=== PATIENT | male | born 1985 | race Two or more races ===

== ENCOUNTER 2023-07-20 11:24 | Inpatient (IN) | payer OTHER ==
[~2023-07-20] VITALS: Ht 177.8 cm; Wt 95.3 kg
[2023-07-20] MEDS ORDERED: ACETAMINOPHEN ES 500 MG TABLET ONE ×3 (12:25→13:29)
[2023-07-20] MEDS ORDERED: IV NS 0.9% 1,000 ML BAG IV ONE (12:30)
[2023-07-20] MEDS: ACETAMINOPHEN ES 500 MG TABLET PO ONE ×2 (12:30→12:39)
[2023-07-20 12:48] LABS: BASOPHILS % (AUTO) 0.3 % (0.0-2.0); EOSINOPHILS # (AUTO) 0.1 K/uL (0.0-0.7); EOSINOPHILS % (AUTO) 1.2 % (0.0-6.0); HEMATOCRIT 48 % (39-51); HEMOGLOBIN 15.8 g/dL (13.5-17.5); LYMPHOCYTES # (AUTO) 1.7 K/uL (0.8-4.8); LYMPHOCYTES % (AUTO) 15.2 % (20.0-44.0); MEAN CORPUSCULAR HEMOGLOBIN 30 PG (26.0-33.0); MEAN CORPUSCULAR HGB CONC 33 g/dl (31.0-36.0); MEAN CORPUSCULAR VOLUME 91 fL (80-96); MONOCYTES # (AUTO) 0.9 K/uL (0.1-1.30); MONOCYTES % (AUTO) 8.4 % (2.0-12.0); NEUTROPHILS # (AUTO) 8.4 K/uL (1.8-8.9); NEUTROPHILS % (AUTO) 74.9 % (43.0-81.0); PLATELET COUNT (AUTO) 177 K/uL (150-450); RED BLOOD CELL COUNT(AUTO) 5.24 MIL/uL (4.5-6.0); RED CELL DISTRIBUTION WIDTH 14.3 % (11.5-15.0); WHITE BLOOD COUNT (AUTO) 11.2 K/uL (4.3-11.0)
[2023-07-20 13:02] LABS: ALANINE AMINOTRANSFERASE 52 U/L (12-78); ALBUMIN 4.1 g/dL (3.4-5.0); ALKALINE PHOSPHATASE 76 U/L (46-116); ASPARTATE AMINOTRANSFERASE 27 U/L (15-37); BILIRUBIN,DIRECT 0.2 mg/dL (0.0-0.2); BILIRUBIN,TOTAL 0.8 mg/dL (0.2-1.0); CALCIUM, SERUM 8.8 mg/dL (8.5-10.1); CARBON DIOXIDE 29 mmol/L (21-32); CHLORIDE 103 mmol/L (98-107); GLUCOSE 90 mg/dL (74-106); POTASSIUM 4.6 mmol/L (3.5-5.1); SODIUM SERUM 136 mmol/L (136-145); TOTAL PROTEIN, SERUM 7.7 g/dL (6.4-8.2); UREA NITROGEN, BLOOD 11 mg/dL (7-18)
[2023-07-20 13:05] LABS: ALCOHOL, BLOOD < 3 mg/dL (0-10)
[2023-07-20] MEDS ORDERED: WARF4TAB72 PO (13:17)
[2023-07-20] MEDS ORDERED: OMEP20CA15 PO (13:17)
[2023-07-20] MEDS ORDERED: METO-357 PO (13:17)
[2023-07-20] MEDS ORDERED: ATOR20TA PO (13:17)
[2023-07-20] MEDS ORDERED: MORPHINE SULFATE INJ 4 MG/ML DISP.SYRIN ONE (13:28)
[2023-07-20] MEDS ORDERED: ONDANSETRON HCL/PF 4 MG/2 ML VIAL ONE (13:28)
[2023-07-20] MEDS ORDERED: MORPHINE SULFATE INJ 2 MG/ML DISP.SYRIN IV ONE (13:30)
[2023-07-20] MEDS ORDERED: ONDANSETRON HCL/PF 4 MG/2 ML VIAL IV ONE (13:30)
[2023-07-20] MEDS ORDERED: LEVETIRACETAM (500MG) 1,000 MG in IV NS 0.9% 90 ML IV SCH (14:00)
[2023-07-20 17:45] VITALS: BP 109/65; TEMP 97.7; O2SAT 98
[2023-07-20] MEDS ORDERED: MAGNESIUM HYDROXIDE 30 ML UDC PO PRN (18:30)
[2023-07-20] MEDS ORDERED: ACETAMINOPHEN 325 MG TABLET PO PRN (18:30)
[2023-07-20] MEDS ORDERED: ZOLPIDEM TARTRATE 5 MG TABLET PO PRN (18:30)
[2023-07-20] MEDS ORDERED: LORAZEPAM INJ 2 MG/ML VIAL IV PRN (18:30)
[2023-07-20] MEDS ORDERED: ONDANSETRON HCL/PF 4 MG/2 ML VIAL IVP PRN (18:30)
[2023-07-20] MEDS ORDERED: Z GUARD REMEDY 4 OZ OINT TP PRN (18:30)
[2023-07-20] MEDS ORDERED: MAG HYDROX/AL HYDROX/SIMETH 30 ML UDC PO PRN (18:30)
[2023-07-20 20:00] VITALS: BP 113/73; TEMP 98.4; O2SAT 98
[2023-07-20] MEDS: HYDROCODONE/APAP 5/325MG TABLET PO PRN (20:08)
[2023-07-20] MEDS: ATORVASTATIN 10 MG TABLET PO SCH (21:22)
[2023-07-20 21:46] LABS: INR 2.61 (0.91-1.10)
[2023-07-21] VITALS: BP 99/59; TEMP 98; O2SAT 99
[2023-07-21] MEDS: MORPHINE SULFATE INJ 4 MG/ML DISP.SYRIN IV PRN ×2 (00:43→07:18)
[2023-07-21] MEDS: LEVETIRACETAM (500MG) 500 MG in IV NS 0.9% 100 ML IV SCH ×2 (02:34→14:24)
[2023-07-21 04:00] VITALS: BP 110/60; TEMP 98; O2SAT 99
[2023-07-21 06:34] LABS: BASOPHILS % (AUTO) 0.6 % (0.0-2.0); EOSINOPHILS # (AUTO) 0.3 K/uL (0.0-0.7); EOSINOPHILS % (AUTO) 3.3 % (0.0-6.0); HEMATOCRIT 41 % (39-51); HEMOGLOBIN 13.8 g/dL (13.5-17.5); LYMPHOCYTES # (AUTO) 2.8 K/uL (0.8-4.8); LYMPHOCYTES % (AUTO) 33.3 % (20.0-44.0); MEAN CORPUSCULAR HEMOGLOBIN 31 PG (26.0-33.0); MEAN CORPUSCULAR HGB CONC 34 g/dl (31.0-36.0); MEAN CORPUSCULAR VOLUME 91 fL (80-96); MONOCYTES # (AUTO) 0.9 K/uL (0.1-1.30); MONOCYTES % (AUTO) 11.1 % (2.0-12.0); NEUTROPHILS # (AUTO) 4.3 K/uL (1.8-8.9); NEUTROPHILS % (AUTO) 51.7 % (43.0-81.0); PLATELET COUNT (AUTO) 154 K/uL (150-450); RED BLOOD CELL COUNT(AUTO) 4.52 MIL/uL (4.5-6.0); RED CELL DISTRIBUTION WIDTH 14.2 % (11.5-15.0); WHITE BLOOD COUNT (AUTO) 8.3 K/uL (4.3-11.0)
[2023-07-21 06:55] LABS: CALCIUM, SERUM 8.3 mg/dL (8.5-10.1); PHOSPHORUS 3.9 mg/dL (2.5-4.9); POTASSIUM 3.5 mmol/L (3.5-5.1)
[2023-07-21 08:00] VITALS: BP 101/60; TEMP 97.5; O2SAT 99
[2023-07-21] MEDS: METOPROLOL SUCCINATE 50 MG TAB.SR.24H PO SCH (09:00)
[2023-07-21] MEDS: PANTOPRAZOLE 40 MG TABLET.DR PO SCH (09:04)
[2023-07-21 12:00] VITALS: BP 99/68; TEMP 97.9; O2SAT 99
[2023-07-21] MEDS: HYDROCODONE/APAP 5/325MG TABLET PO PRN ×3 (12:59→22:39)
[2023-07-21 16:00] VITALS: BP 100/65; TEMP 98.6; O2SAT 97
[2023-07-21] MEDS ORDERED: WARFARIN SODIUM 1 MG TABLET PO SCH (17:00)
[2023-07-21 20:00] VITALS: BP 103/70; TEMP 98; O2SAT 98
[2023-07-21 20:10] LABS: INR 2.23 (0.91-1.10); PROTHROMBIN TIME 22.4 SECS (9.2-11.1)
[2023-07-21] MEDS: ATORVASTATIN 10 MG TABLET PO SCH (22:35)
[2023-07-22] VITALS: BP 105/69; TEMP 98; O2SAT 98
[2023-07-22] MEDS: LEVETIRACETAM (500MG) 500 MG in IV NS 0.9% 100 ML IV SCH (02:25)
[2023-07-22] MEDS: HYDROCODONE/APAP 5/325MG TABLET PO PRN ×2 (02:28→06:42)
[2023-07-22 04:00] VITALS: BP 110/72; TEMP 97.8; O2SAT 98
[2023-07-22 07:49] LABS: BASOPHILS % (AUTO) 0.3 % (0.0-2.0); EOSINOPHILS # (AUTO) 0.3 K/uL (0.0-0.7); EOSINOPHILS % (AUTO) 2.9 % (0.0-6.0); HEMATOCRIT 43 % (39-51); HEMOGLOBIN 14.4 g/dL (13.5-17.5); LYMPHOCYTES # (AUTO) 2.2 K/uL (0.8-4.8); LYMPHOCYTES % (AUTO) 25.1 % (20.0-44.0); MEAN CORPUSCULAR HEMOGLOBIN 31 PG (26.0-33.0); MEAN CORPUSCULAR HGB CONC 34 g/dl (31.0-36.0); MEAN CORPUSCULAR VOLUME 91 fL (80-96); MONOCYTES # (AUTO) 0.9 K/uL (0.1-1.30); MONOCYTES % (AUTO) 10.3 % (2.0-12.0); NEUTROPHILS # (AUTO) 5.4 K/uL (1.8-8.9); NEUTROPHILS % (AUTO) 61.4 % (43.0-81.0); PLATELET COUNT (AUTO) 150 K/uL (150-450); RED BLOOD CELL COUNT(AUTO) 4.71 MIL/uL (4.5-6.0); WHITE BLOOD COUNT (AUTO) 8.8 K/uL (4.3-11.0)
[2023-07-22 08:00] VITALS: BP 94/62; TEMP 98; O2SAT 97; O2SAT 98
[2023-07-22 08:22] LABS: CALCIUM, SERUM 8.3 mg/dL (8.5-10.1); CREATININE 0.9 mg/dL (0.6-1.3); MAGNESIUM 1.9 mg/dL (1.8-2.4); PHOSPHORUS 3.5 mg/dL (2.5-4.9); POTASSIUM 4.1 mmol/L (3.5-5.1)
[2023-07-22] MEDS: PANTOPRAZOLE 40 MG TABLET.DR PO SCH (09:05)
[2023-07-22] MEDS: METOPROLOL SUCCINATE 50 MG TAB.SR.24H PO SCH (09:05)
[2023-07-22 12:00] VITALS: BP 97/61; TEMP 98.1; TEMP 98.6; O2SAT 98
[2023-07-22] MEDS ORDERED: KETOROLAC TROMETHAMINE INJ 30 MG/ML VIAL IV ONE (12:30)
[2023-07-22] MEDS ORDERED: LEVE1000 PO (12:55)
[2023-07-22] MEDS ORDERED: BACL10TA PO (12:55)
[2023-07-22] MEDS ORDERED: LEVETIRACETAM (250 MG) 250 MG TABLET PO SCH (21:00)
== END 2023-07-22 13:31 | disposition home or self-care (01) | DRG 53 ==
LOC: ER 11:24 → TELE1 17:01
PROVIDERS: ADMIT Student in an Organized Health Care Education/Training Program; ATTEND Student in an Organized Health Care Education/Training Program
DX: R56.9 Unspecified convulsions (principal); D68.59 Other primary thrombophilia; I10 Essential (primary) hypertension; E78.5 Hyperlipidemia, unspecified; Z95.2 Presence of prosthetic heart valve; Z95.0 Presence of cardiac pacemaker; Z79.899 Other long term (current) drug therapy; Z79.01 Long term (current) use of anticoagulants; D72.829 Elevated white blood cell count, unspecified; M62.830 Muscle spasm of back; Z86.79 Personal history of other diseases of the circulatory system
CPT/HCPCS: 36415; 70450-TC; 71045-TC; 72131-TC; 72170-TC; 80048-TC; 80076-TC; 82962-TC; 83735-TC; 84100-TC; 85025-TC; 85610-TC; 95819-TC; 97116-TC; 97530-TC; A4223; G0378; G0480; J1885; J1953; J2270; J2405; J7030; J7050

== ENCOUNTER 2025-08-16 01:08 | Emergency (ER) | payer MEDICAID, OTHER ==
[~2025-08-16] VITALS: Ht 172.7 cm; Wt 79.4 kg
[~2025-08-16 01:08] MED LIST: ATOR20TA PO; BACL10TA PO; LEVE1000 PO; METO-357 PO; OMEP20CA15 PO; WARF4TAB72 PO
[2025-08-16 01:21] VITALS: BP 132/72; TEMP 98.6; O2SAT 97
[2025-08-16 01:44] LABS: PLATELET COUNT (AUTO) 148 K/uL (150-450); RED BLOOD CELL COUNT(AUTO) 5.21 MIL/uL (4.5-6.0); RED CELL DISTRIBUTION WIDTH 14.4 % (11.5-15.0); WHITE BLOOD COUNT (AUTO) 8.7 K/uL (4.3-11.0)
[2025-08-16 01:56] LABS: CALCIUM, SERUM 8.4 mg/dL (8.5-10.1); CREATININE 1.0 mg/dL (0.6-1.3); SODIUM SERUM 141 mmol/L (136-145); UREA NITROGEN, BLOOD 19 mg/dL (7-18)
[2025-08-16 01:57] LABS: INR 2.04 (0.91-1.10)
[2025-08-16 02:07] LABS: ASPARTATE AMINOTRANSFERASE 27 U/L (15-37); TOTAL PROTEIN, SERUM 7.4 g/dL (6.4-8.2)
== END 2025-08-16 05:35 | disposition left against medical advice (07) ==
LOC: ER 01:13
DX: R00.2 Palpitations (principal); E78.5 Hyperlipidemia, unspecified; I10 Essential (primary) hypertension; Z79.01 Long term (current) use of anticoagulants; Z79.899 Other long term (current) drug therapy
CPT/HCPCS: 36415; 71045-TC; 80048-TC; 80076-TC; 84484-TC; 85025-TC; 85730-TC